=== PATIENT | male | born 1945 | race Two or more races ===

== ENCOUNTER → 2025-07-22 | Outpatient (CLI) | payer MEDICARE, MEDICAID, SELFPAY ==
--- NOTE | 2025-07-22 15:32 | XR_ITS ---
Examination: Retroperitoneal ultrasound, complete Technique: Multiple high resolution grayscale images of the retroperitoneum obtained, including kidneys and bladder. Exam date and time:July 22, 2025, 1546 hours INDICATIONS: Chronic kidney disease stage II on laboratory examination 2 months ago FINDINGS: Right kidney 11.7 cm cortex 1.2 cm Left kidney 10.9 cm cortex 1.4 cm Moderate renal parenchymal scar formation. No hydronephrosis or renal calculi No bladder mass or bladder calculi Bladder prevoid volume 107 cc Prostate 4.5 x 3.7 x 5.6 cm volume volume 49 cc no prostate nodules IMPRESSION: Moderate bilateral renal parenchymal scar formation Bilateral renal cortical thinning No hydronephrosis or renal calculi
== END | disposition home or self-care (01) ==
PROVIDERS: PCP Nurse Practitioner Family; Referring Provider Nurse Practitioner Family; Visit Provider Nurse Practitioner Family
DX: N28.89 Other specified disorders of kidney and ureter (principal)
CPT/HCPCS: 76770